=== PATIENT | male | born 1955 | race Hispanic/Latino ===

== ENCOUNTER 2018-10-03 08:45 | Day surgery (SDC) | payer OTHER ==
[2018-10-03] MEDS: NACL 0.9% 500 ML 500 ML IV SCH ×2 (10:37→12:20)
[2018-10-03 10:39] LABS: Basophils # (Auto) 0.1 K/mm3 (0.0-0.1); Basophils % (Auto) 0.9 % (0.0-1.8); Eosinophils # (Auto) 0.4 K/mm3 (0.0-0.4); Eosinophils % (Auto) 6.2 % (0.0-4.3); Hematocrit 39.9 % (35.5-45.6); Hemoglobin 13.4 gm/dl (11.8-15.2); Lymphocytes # (Auto) 1.5 K/mm3 (1.2-5.4); Lymphocytes % (Auto) 21.6 % (13.4-35.0); Mean Corpuscular HGB Conc 34 % (32-34); Mean Corpuscular Volume 88 fl (84-94); Monocytes # (Auto) 0.6 K/mm3 (0.0-0.8); Monocytes % (Auto) 9.2 % (0.0-7.3); Platelet Count 212 K/mm3 (140-440); Red Blood Count 4.56 M/mm3 (3.65-5.03); Red Cell Distribution Width 15.3 % (13.2-15.2)
[2018-10-03 10:50] LABS: INR 1.01 (0.87-1.13)
[2018-10-03 10:51] LABS: Partial Thromboplastin Time 28.8 Sec. (24.2-36.6)
[2018-10-03 11:03] LABS: Calcium 8.9 mg/dL (8.4-10.2)
[2018-10-03] MEDS ORDERED: HEPARIN/NS 5000 UNIT/500ML(CATH LAB) 500 ML IR ONE (11:18)
[2018-10-03] MEDS ORDERED: VERSED ONE (11:45)
[2018-10-03] MEDS ORDERED: SUBLIMAZE ONE (11:46)
[2018-10-03] MEDS ORDERED: DILAUDID ONE (11:46)
[2018-10-03] MEDS ORDERED: TORADOL ONE (11:46)
[2018-10-03] MEDS: XYLOCAINE 2% INFILTRATI ONE ×2 (12:22→12:23)
--- NOTE | 2018-10-03 13:04 | Short Stay Summary ---
Short Stay Documentation Date of service: 10/03/18 - History Principal diagnosis: Venous hypertension Past Surgical History: Other (superficial venous treatment) Social history: no significant social history - Allergies and Medications Current Medications: Allergies No Known Allergies Allergy (Verified 10/03/18 09:56) Home Medications Medication Instructions Recorded Confirmed Last Taken Type Acyclovir [Zovirax Cap] 100 mg PO BID 10/03/18 10/03/18 10/02/18 History 100mg Apixaban [Eliquis] 5 mg PO DAILY 10/03/18 10/03/18 10/03/18 History 5mg AtorvaSTATin [Lipitor] 40 mg PO QHS 10/03/18 10/03/18 10/02/18 History 40mg Furosemide [Lasix TAB] 20 mg PO DAILY 10/03/18 10/03/18 10/02/18 History 20mg Gabapentin [Neurontin] 600 mg PO BID 10/03/18 10/03/18 10/02/18 History 600mg Lisinopril/Hydrochlorothiazide 1 tab PO DAILY 10/03/18 10/03/18 10/02/18 History [Zestoretic 10-12.5 mg Tablet] 1 Nebivolol HCl [Bystolic] 10 mg PO DAILY 10/03/18 10/03/18 10/03/18 History 10mg Pramipexole Di-HCl [Pramipexole 0.25 mg PO DAILY 10/03/18 10/03/18 10/02/18 History Dihydrochloride] 0.25mg Topiramate [Topiramate ER] 50 mg PO DAILY 10/03/18 10/03/18 10/02/18 History 50mg clonazePAM [KlonoPIN] 0.5 mg PO BID 10/03/18 10/03/18 10/02/18 History 0.5mg tiZANidine [Zanaflex] 4 mg PO DAILY 10/03/18 10/03/18 10/02/18 History 4mg Active Medications Sodium Chloride (Nacl 0.9% 500 Ml) 500 mls @ 50 mls/hr IV DIRECT EDSON Last Admin: 10/03/18 12:20 Dose: 50 mls/hr Documented by: - Physical exam General appearance: no acute distress HEENT: Atraumatic Lungs: Normal air movement Breasts: deferred Heart: Regular rate Gastrointestinal: normal Male Genitourinary: deferred Rectal Exam: deferred Extremities: abnormal Neurological: Normal gait - Brief post op/procedure progress note Date of procedure: 10/03/18 Pre-op diagnosis: venous compression Post-op diagnosis: same Procedure: BLE venogram, IVUS, Venoplasty and stent placement Anesthesia: local Surgeon: MARIELA LEI Estimated blood loss: minimal Pathology: none Condition: stable - Disposition Condition at discharge: Good Disposition: DC-01 TO HOME OR SELFCARE Short Stay Discharge Plan Activity: advance as tolerated Weight Bearing Status: Weight Bear as Tolerated Diet: regular Wound: keep clean and dry, per your surgeon's advice Follow up with: DAVID ASKEW MD [Primary Care Provider] - 7 Days
--- NOTE | 2018-10-03 13:09 | Operative Report ---
Operative Report Operative Report: Exam: Bilateral lower extremity venogram, intravascular ultrasound, venoplasty with stent placement Clinical indication: Patient with venous hypertension with bilateral lower extremity swelling, skin discoloration Date: 10/03/2018 Procedure: Following an explanation of the risks, benefits and alternatives; josé stark informed consent was obtained. The patient was brought to the Patient erratic suite and placed in supine position on the examination table. Initial ultrasound evaluation of the legs demonstrated patent femoral veins bilaterally. The patient's proximal legs were prepped and draped in usual sterile fashion. 1% lidocaine was used for anesthesia. Under ultrasound guidance, the femoral vein on the right was cannulated with a 7 cm 18-gauge needle. A 0.035 guidewire was advanced centrally. The needle was removed and a 5 Lebanese Sheath Placed. Access to the left proximal femoral vein was obtained in a similar fashion and an additional 5 Lebanese sheath placed. Contrast was injected through the right sheath which demonstrated significant compression of the right external iliac vein. Contrast was injected through the left sheath which demonstrated significant compression of the left external iliac vein. The decision was made to evaluate further with intravascular ultrasound. Intravascular ultrasound was first performed on the right followed by the left. Clay vessels including the IVC, right common iliac vein, right external iliac vein and right common femoral vein. Left common iliac vein, left external iliac vein and left common femoral vein. The IVC is widely patent. Bilateral common iliac veins are widely patent. The left external iliac vein demonstrates 65% st enosis. The right external iliac vein demonstrate 81% stenosis. The common femoral veins bilaterally demonstrate prestenotic dilatation. An 18-90 mm wall stent was advanced through the right sheath and deployed across the lesion. The stent was seated using a 16 mm balloon. An 18 x 90 mm wall stent was advanced through the sheath and deployed across the lesion. The stent was seated using a 16 mm balloon. Post stent and venoplasty imaging bilaterally demonstrates reduction of the stenosis to less than 10% bilaterally. The guidewires were removed. The sheaths were removed and hemostasis achieved using manual compression. A sterile dressing was applied. The patient tolerated the procedure well. There were no immediate postprocedure complications. Impression: 1) Bilateral lower extremity venogram demonstrating significant compression of the external iliac veins bilaterally. 2) Intravascular ultrasound of the IVC, bilateral common iliac veins, bilateral external iliac veins in bilateral common femoral veins demonstrating 81% stenosis in the right external iliac vein and 65% stenosis in the left external iliac vein with prestenotic dilatation. 3) Treatment of these above named lesions with 18 x 90 mm wall stents with residual less than 10% stenosis
[2018-10-03] MEDS ORDERED: HYDROGEN PEROXIDE ONE (13:22)
[2018-10-03 16:23] VITALS: BP 115/63
== END 2018-10-03 14:55 | disposition home or self-care (01) ==
LOC: CATHLABREC 08:45
PROVIDERS: ATTEND Radiology Diagnostic Radiology
DX: I87.1 Compression of vein (principal); I87.303 Chronic venous hypertension (idiopathic) without complications of bilateral lower extremity; F17.210 Nicotine dependence, cigarettes, uncomplicated; E78.00 Pure hypercholesterolemia, unspecified; I10 Essential (primary) hypertension; G47.33 Obstructive sleep apnea (adult) (pediatric); K21.9 Gastro-esophageal reflux disease without esophagitis; G62.9 Polyneuropathy, unspecified; Z79.899 Other long term (current) drug therapy; Z98.890 Other specified postprocedural states
CPT/HCPCS: 36415; 37238; 37239; 37252; 37253; 75822; 76937; 80048; 85025; 85610; 85730; 99156; 99157; C1725; C1753; C1769; C1876; C1894; J1644; J1885; J2250; J3010; J7040; J1170; Q9967

== ENCOUNTER 2019-08-11 06:16 | Day surgery (SDC) | payer OTHER ==
[2019-08-11 07:09] LABS: Basophils # (Auto) 0.1 K/mm3 (0.0-0.1); Basophils % (Auto) 0.8 % (0.0-1.8); Eosinophils # (Auto) 0.3 K/mm3 (0.0-0.4); Eosinophils % (Auto) 4.8 % (0.0-4.3); Hematocrit 41.6 % (35.5-45.6); Hemoglobin 13.8 gm/dl (11.8-15.2); Lymphocytes # (Auto) 2.7 K/mm3 (1.2-5.4); Mean Corpuscular HGB Conc 33 % (32-34); Mean Corpuscular Volume 87 fl (84-94); Monocytes # (Auto) 0.8 K/mm3 (0.0-0.8); Monocytes % (Auto) 11.5 % (0.0-7.3); Platelet Count 234 K/mm3 (140-440); Red Blood Count 4.81 M/mm3 (3.65-5.03); Red Cell Distribution Width 13.9 % (13.2-15.2)
[2019-08-11 07:18] LABS: INR 1.12 (0.87-1.13)
[2019-08-11 07:19] LABS: Partial Thromboplastin Time 39.2 Sec. (24.2-36.6)
[2019-08-11 07:52] LABS: BUN/Creatinine Ratio 22; Blood Urea Nitrogen 22 mg/dL (9-20); Calcium 9.4 mg/dL (8.4-10.2); Hemolysis Index 0
[2019-08-11] MEDS ORDERED: SODIUM CHLORIDE 0.9% 500 ML 500 ML IV SCH (08:00)
[2019-08-11] MEDS ORDERED: LIDOCAINE (2%) 20 MG/1 ML VIAL 20 ML MDV INFILTRATI ONE (08:05)
[2019-08-11] MEDS ORDERED: HEPARIN 10,000 UNITS/10 ML VIAL ONE (08:05)
[2019-08-11] MEDS ORDERED: HEPARIN/NS 5000 UNIT/500ML 1,000 ML IR ONE (08:05)
[2019-08-11] MEDS ORDERED: MIDAZOLAM 2 MG/2 ML INJ ONE (08:05)
[2019-08-11] MEDS ORDERED: fentaNYL 100 MCG/2 ML INJ ONE (08:05)
[2019-08-11 10:43] VITALS: BP 107/54
--- NOTE | 2019-08-11 11:18 | Short Stay Summary ---
Short Stay Documentation Date of service: 08/11/19 Narrative H&P: See short stay record - Allergies and Medications Current Medications: Allergies No Known Allergies Allergy (Verified 10/03/18 09:56) Home Medications Medication Instructions Recorded Confirmed Last Taken Type Apixaban [Eliquis] 5 mg PO DAILY 10/03/18 08/11/19 08/10/19 History 5 mg Furosemide [Lasix TAB] 20 mg PO DAILY 10/03/18 08/11/19 08/11/19 05:00 History Gabapentin [Neurontin] 600 mg PO 5XD 10/03/18 08/11/19 08/11/19 05:00 History Lisinopril/Hydrochlorothiazide 1 tab PO DAILY 10/03/18 08/11/19 08/08/19 History [Zestoretic 10-12.5 mg Tablet] 1 tab Nebivolol HCl [Bystolic] 5 mg PO DAILY 10/03/18 08/11/19 08/11/19 History 5 mg Pramipexole Di-HCl [Pramipexole 1.5 mg PO 5XD 10/03/18 08/11/19 08/11/19 History Dihydrochloride] 1.5mg oxyCODONE /ACETAMINOPHEN [Percocet 1 tab PO Q6HR PRN #20 tablet 10/03/18 08/11/19 08/11/19 Rx 5/325] 1 tab Cyclobenzaprine [Flexeril 10 MG 10 mg PO BID 08/11/19 08/11/19 08/11/19 History TAB] 10 mg Naldemedine Tosylate [Symproic] 1 tab PO DAILY 08/11/19 08/11/19 08/11/19 History 1 tab Active Medications Sodium Chloride (Nacl 0.9% 500 Ml) 500 mls @ 50 mls/hr IV DIRECT EDSON Last Admin: 08/11/19 07:59 Dose: 50 mls/hr Documented by: - Brief post op/procedure progress note Date of procedure: 08/11/19 Pre-op diagnosis: History of PE with Need for Cessation of Anticoagulation for Operation Post-op diagnosis: same Procedure: 1. Ultrasound-Guided Access Right Common Femoral Vein 2. Diagnostic Inferior Venacavogram 3. Placement of Nikole IVC Filter 4. Radiologic Supervision with Interpretation Anesthesia: local, other (Monitored Moderate Sedation) Surgeon: JAZ WINSLOW Estimated blood loss: none Pathology: none Condition: stable - Disposition Condition at discharge: Good Disposition: DC-01 TO HOME OR SELFCARE Short Stay Discharge Plan Activity: other (No heavy lifting for 24 hours) Wound: open to air, remove dressing (24-hour)
--- NOTE | 2019-08-11 11:20 | Operative Report ---
Operative Report Operative Report: Date of procedure: 08/11/2019 Pre-operative diagnosis: History of DVT and PE with Need for Cessation of Antic oagulation for Fusion of His Cervical Spine Post-operative diagnosis: Same Procedure(s): 1. Ultrasound-Guided Access Right Femoral Vein 2. Inferior Venacavogram 3. Placement of Nikole IVC Filter 4. Radiologic Supervision With Interpretation Surgeon: Nav White MD Director Decision Support: None Anesthesia: Local, IV sedation EBL: None Counts: Correct Complications: None Condition: Stable Findings: Successful placement of IVC filter Specimen: None Indication: The patient is a 63-year-old male with a history of DVT and PE who is on Eliquis and needs to stop his Eliquis for cervical spine fusion. He is in need of an IVC filter placement to prevent pulmonary embolus in the perioperative period. He was given the risk, benefits, and alternative procedures and consented to the procedure. Description of Procedure: The patient was brought into the cath lab manager and laid in supine position, after adequate sedation the patient was prepped and draped in normal sterile fashion. Ultrasound was used to identify the right common femoral vein and the overlying skin and soft tissue was anesthetized with lidocaine. A small stab incision was made and the access needle was used with ultrasound guidance to enter the right common femoral vein. An 035 J-wire was advanced into the inferior vena cava under fluoroscopic guidance and a 5 Hebrew sheath was placed by Seldinger technique. A 5 Hebrew pigtail catheter was advanced just above the confluence of the iliac veins and inferior venacavogram was performed that demonstrated normal caliber of the inferior vena cava as well as the level of the renal veins. It also demonstrated the inferior vena cava was free of thrombus. The wire was reinserted and the pigtail catheter was removed leaving the wire in place and then the 5 Hebrew sheath was removed. The filter delivery sheath was advanced by Seldinger technique into the inferior vena cava with the tip well above the level of the renal veins. The filter was then inserted and positioned with the apex approximately a centimeter below the renal veins. The delivery sheath was withdrawn deploying the filter in place without any evidence of tilt. The sheath was then removed and pressure was held to achieve hemostasis. The patient tolerated the procedure well, all sponge needle and instrument counts correct, the patient was taken to recovery in stable condition.
== END 2019-08-11 11:18 | disposition home or self-care (01) ==
LOC: CATHLABREC 06:16
PROVIDERS: ATTEND Surgery Vascular Surgery
DX: I87.1 Compression of vein (principal); G62.9 Polyneuropathy, unspecified; E78.00 Pure hypercholesterolemia, unspecified; I10 Essential (primary) hypertension; G47.30 Sleep apnea, unspecified; K21.9 Gastro-esophageal reflux disease without esophagitis; M19.90 Unspecified osteoarthritis, unspecified site; Z98.890 Other specified postprocedural states; Z79.899 Other long term (current) drug therapy; Z87.891 Personal history of nicotine dependence; Z79.01 Long term (current) use of anticoagulants; Z86.718 Personal history of other venous thrombosis and embolism; Z86.711 Personal history of pulmonary embolism
CPT/HCPCS: 36415; 37191; 80048; 85025; 85610; 85730; 99156; 99157; C1880; J1644; J2250; J3010; J7040; Q9967

== ENCOUNTER 2019-10-02 14:40 | Inpatient (IN) | payer OTHER, MEDICARE ==
[2019-10-02] MEDS ORDERED: MORPHINE 2 MG/1 ML INJ IV PRN (14:57)
[2019-10-02] MEDS ORDERED: ONDANSETRON 4 MG/2 ML INJ IV PRN (14:57)
[2019-10-02] MEDS ORDERED: MORPHINE 4 MG/1 ML INJ IV PRN (14:57)
[2019-10-02] MEDS ORDERED: HYDROcodone/ACETAMINOPHEN 5-325 MG TAB PO PRN (14:57)
[2019-10-02] MEDS ORDERED: ALTEPLASE 20 MG in SODIUM CHLORIDE 0.9% 500 ML 500 ML EKOSDLUMEN SCH (15:00)
[2019-10-02] MEDS ORDERED: SODIUM CHLORIDE 0.9% 1000 ML 1,000 ML IV SCH (15:00)
[2019-10-02] MEDS ORDERED: HEPARIN/ 0.45% NACL DRIP 25,000 UNIT/500 ML BAG SHEATH SCH (15:00)
[2019-10-02] MEDS ORDERED: SODIUM CHLORIDE 0.9% 1000 ML 1,000 ML EKOSCLUMEN SCH (15:00)
[2019-10-02] MEDS ORDERED: SODIUM CHLORIDE 0.9% 1000 ML 1,000 ML SHEATH SCH (15:00)
--- NOTE | 2019-10-02 15:00 | Emergency Department Report ---
ED General Adult HPI - General Chief complaint: Extremity Injury, Lower Stated complaint: SENT FROM DR/[facility]OOD [facility]OT[facility] (L) LEG PUI?: No Time Seen by Provider: 10/02/19 14:55 Source: patient, RN notes reviewed, old records reviewed Mode of arrival: Wheelchair Limitations: No Limitations - History of Present Illness Initial comments: Patient is a pleasant 64-year-old gentleman with a known history of venous hypertension, DVT, IVC filter, currently on Eliquis anticoagulation therapy, recently discontinued therapy for outpatient cervical spine surgical fusion, performed about a week and a half ago, was cleared by his neurosurgeon to reinitiate Lovenox and Eliquis 5 days ago, sent to the emergency room by his vascular surgeon, Dr. Olivares, for large left lower extremity DVT. Patient endorses painless swelling in left lower extremity which started yesterday. He denies headache, neck pain, chest pain, abdominal pain, shortness of breath, hematemesis, bright red blood per rectum, and makes no complaint of extremity weakness and or numbness. Left lower extremity swelling is constant, does not radiate anywhere, does not have exacerbating or relieving factors, and does not radiate anywhere. -: days(s) Location: left, lower extremity Consistency: constant Improves with: none Worsens with: none - Related Data Home Medications Medication Instructions Recorded Confirmed Last Taken Apixaban [Eliquis] 5 mg PO DAILY 10/03/18 10/02/19 10/02/19 Gabapentin [Neurontin] 600 mg PO 5XD 10/03/18 10/02/19 10/02/19 Lisinopril/Hydrochlorothiazide 1 tab PO DAILY 10/03/18 10/02/19 10/02/19 [Zestoretic 10-12.5 mg Tablet] Nebivolol HCl [Bystolic] 5 mg PO DAILY 10/03/18 10/02/19 10/02/19 Pramipexole Di-HCl [Pramipexole 1.5 mg PO 5XD 10/03/18 10/02/19 10/02/19 Dihydrochloride] Cyclobenzaprine [Flexeril 10 MG 10 mg PO BID 08/11/19 10/02/19 10/02/19 TAB] Naldemedine Tosylate [Symproic] 1 tab PO DAILY 03/03/2210/02/19 10/02/19 Previous Rx's Medication Instructions Recorded Last Taken Type oxyCODONE /ACETAMINOPHEN [Percocet 1 tab PO Q6HR PRN #20 tablet 10/03/18 10/02/19 Rx 5/325 mg] Allergies Allergy/AdvReac Type Severity Reaction Status Date / Time No Known Allergies Allergy Verified 10/03/18 09:56 ED Review of Systems ROS: Stated complaint: SENT FROM DR/[facility]OOD [facility]OT[facility] (L) LEG Other details as noted in HPI Constitutional: denies: fever Eyes: denies: eye discharge ENT: denies: congestion Respiratory: denies: wheezing Cardiovascular: denies: chest pain, syncope Gastrointestinal: denies: vomiting, constipation, melena, hematochezia Genitourinary: denies: dysuria Musculoskeletal: joint swelling, other Skin: lesions Neurological: as per HPI Psychiatric: as per HPI Hematological/Lymphatic: denies: easy bleeding ED Past Medical Hx - Past Medical History Previous Medical History?: Yes Hx Hypertension: Yes Hx GERD: Yes Hx Arthritis: Yes - Surgical History Past Surgical History?: Yes Additional Surgical History: fusion. multiple eye surgery - Social History Smoking Status: Former Smoker Substance Use Type: None - Medications Home Medications: Home Medications Medication Instructions Recorded Confirmed Last Taken Type Apixaban [Eliquis] 5 mg PO DAILY 10/03/18 10/02/19 10/02/19 History Gabapentin [Neurontin] 600 mg PO 5XD 10/03/18 10/02/19 10/02/19 History Lisinopril/Hydrochlorothiazide 1 tab PO DAILY 10/03/18 10/02/19 10/02/19 History [Zestoretic 10-12.5 mg Tablet] Nebivolol HCl [Bystolic] 5 mg PO DAILY 10/03/18 10/02/19 10/02/19 History Pramipexole Di-HCl [Pramipexole 1.5 mg PO 5XD 10/03/18 10/02/19 10/02/19 History Dihydrochloride] oxyCODONE /ACETAMINOPHEN [Percocet 1 tab PO Q6HR PRN #20 tablet 10/03/18 10/02/19 10/02/19 Rx 5/325 mg] Cyclobenzaprine [Flexeril 10 MG 10 mg PO BID 08/11/19 10/02/19 10/02/19 History TAB] Naldemedine Tosylate [Symproic] 1 tab PO DAILY 08/11/19 10/02/19 10/02/19 History ED Physical Exam - General Limitations: No Limitations General appearance: alert, in no apparent distress - Head Head exam: Present: atraumatic, normocephalic - Eye Eye exam: Present: normal appearance, EOMI. Absent: nystagmus - ENT ENT exam: Present: normal exam, normal orophraynx, mucous membranes moist, TM's normal bilaterally - Neck Neck exam: Present: normal inspection, other (Cervical collar in place. No redness, pus or streaking noted on surgical site) - Respiratory Respiratory exam: Present: normal lung sounds bilaterally. Absent: respiratory distress - Cardiovascular Cardiovascular Exam: Present: regular rate, normal rhythm, normal heart sounds. Absent: bradycardia, tachycardia, irregular rhythm, systolic murmur, diastolic murmur, rubs, gallop - GI/Abdominal GI/Abdominal exam: Present: soft, normal bowel sounds. Absent: distended, tenderness, guarding, rebound, rigid, pulsatile mass - Rectal Rectal exam: Present: deferred - Extremities Exam Extremities exam: Present: full ROM, pedal edema, other (Swollen left lower extremity. 2+ pulses noted in the bilateral upper and lower extremities. The compartments are soft. There is no long bony tenderness. Motor and sensation are intact in the bilateral lower extremities). Absent: tenderness - Back Exam Back exam: Present: normal inspection. Absent: tenderness, CVA tenderness (R), CVA tenderness (L), paraspinal tenderness, vertebral tenderness - Neurological Exam Neurological exam: Present: alert, other (No facial droop. Tongue midline. Extraocular movements intact bilaterally. Facial sensation intact to light touch in V1, V2, V3 distribution bilaterally. 5 and a 5 strength in 4 extremities. Sensation intact to light touch in 4 extremities.). Absent: motor sensory deficit - Psychiatric Psychiatric exam: Present: flat affect - Skin Skin exam: Present: warm, dry, intact, normal color. Absent: rash ED Course Vital Signs 10/02/19 10/02/19 10/02/19 14:44 15:04 16:00 Temperature 98.1 F Pulse Rate 95 H 86 Respiratory 18 17 Rate Blood Pressure 108/67 105/63 Blood Pressure [Right] O2 Sat by Pulse 97 79 L 93 Oximetry 10/02/19 10/02/19 10/02/19 16:45 17:00 18:00 Temperature 99.1 F Pulse Rate 84 86 97 H Respiratory 16 20 Rate Blood Pressure 132/79 120/76 Blood Pressure 150/89 [Right] O2 Sat by Pulse 91 91 Oximetry 10/02/19 10/02/19 10/02/19 19:00 20:00 21:00 Temperature Pulse Rate 92 H 95 H 92 H Respiratory 18 20 17 Rate Blood Pressure 130/77 132/77 131/85 Blood Pressure [Right] O2 Sat by Pulse 91 Oximetry 10/02/19 10/02/19 10/02/19 22:00 23:00 23:23 Temperature Pulse Rate 88 88 Respiratory 18 18 20 Rate Blood Pressure 140/86 137/80 147/89 Blood Pressure [Right] O2 Sat by Pulse 92 94 92 Oximetry 10/03/19 10/03/19 10/03/19 00:00 01:00 01:05 Temperature 98.0 F Pulse Rate 91 H 88 Respiratory 18 17 Rate Blood Pressure 147/89 147/89 Blood Pressure [Right] O2 Sat by Pulse 93 93 Oximetry 10/03/19 10/03/19 10/03/19 02:00 03:00 04:00 Temperature Pulse Rate 90 91 H 90 Respiratory 14 19 20 Rate Blood Pressure 145/85 110/70 110/70 Blood Pressure [Right] O2 Sat by Pulse 96 87 94 Oximetry 10/03/19 10/03/19 10/03/19 05:00 05:49 06:00 Temperature 98.5 F Pulse Rate Respiratory Rate Blood Pressure 110/65 119/72 Blood Pressure [Right] O2 Sat by Pulse 90 89 Oximetry 10/03/19 10/03/19 10/03/19 07:00 07:37 08:00 Temperature 97.8 F Pulse Rate 81 79 Respiratory 17 17 Rate Blood Pressure 122/77 139/87 Blood Pressure 135/84 [Right] O2 Sat by Pulse 96 96 96 Oximetry ED Medical Decision Making - Lab Data Result diagrams: 10/02/19 16:44 10/02/19 16:31 Vital Signs 10/02/19 14:44 Temperature 98.1 F Pulse Rate 95 H Respiratory 18 Rate Blood Pressure 108/67 O2 Sat by Pulse 97 Oximetry Vital Signs 10/02/19 10/02/19 10/02/19 14:44 15:04 16:00 Temperature 98.1 F Pulse Rate 95 H 86 Respiratory 18 17 Rate Blood Pressure 108/67 105/63 Blood Pressure [Right] O2 Sat by Pulse 97 79 L 93 Oximetry 10/02/19 10/02/19 10/02/19 16:45 17:00 18:00 Temperature 99.1 F Pulse Rate 84 86 97 H Respiratory 16 20 Rate Blood Pressure 132/79 120/76 Blood Pressure 150/89 [Right] O2 Sat by Pulse 91 91 Oximetry 10/02/19 10/02/19 10/02/19 19:00 20:00 21:00 Temperature Pulse Rate 92 H 95 H 92 H Respiratory 18 20 17 Rate Blood Pressure 130/77 132/77 131/85 Blood Pressure [Right] O2 Sat by Pulse 91 Oximetry 10/02/19 10/02/19 10/02/19 22:00 23:00 23:23 Temperature Pulse Rate 88 88 Respiratory 18 18 20 Rate Blood Pressure 140/86 137/80 147/89 Blood Pressure [Right] O2 Sat by Pulse 92 94 92 Oximetry 10/03/19 10/03/19 10/03/19 00:00 01:00 01:05 Temperature 98.0 F Pulse Rate 91 H 88 Respiratory 18 17 Rate Blood Pressure 147/89 147/89 Blood Pressure [Right] O2 Sat by Pulse 93 93 Oximetry 10/03/19 10/03/19 10/03/19 02:00 03:00 04:00 Temperature Pulse Rate 90 91 H 90 Respiratory 14 19 20 Rate Blood Pressure 145/85 110/70 110/70 Blood Pressure [Right] O2 Sat by Pulse 96 87 94 Oximetry 10/03/19 10/03/19 10/03/19 05:00 05:49 06:00 Temperature 98.5 F Pulse Rate Respiratory Rate Blood Pressure 110/65 119/72 Blood Pressure [Right] O2 Sat by Pulse 90 89 Oximetry 10/03/19 10/03/19 10/03/19 07:00 07:37 08:00 Temperature 97.8 F Pulse Rate 81 79 Respiratory 17 17 Rate Blood Pressure 122/77 139/87 Blood Pressure 135/84 [Right] O2 Sat by Pulse 96 96 96 Oximetry - Medical Decision Making Differential diagnosis, including but not limited to: Large left lower extremity DVT Assessment and plan: 64-year-old gentleman presenting with acute onset left lower extremity DVT, now on anticoagulation, not a thrombolysis candidate secondary to recent cervical spine surgery performed about a week and a half ago, sent to the emergency room by his vascular surgeon for intervention on the aforementioned DVT. He is amenable to hospitalization, and we will initiate heparin. Dr. Olivares of vascular surgery to follow in consultation. Dr. Capone of hospital medicine to admit the patient to the medical service. Patient is amenable to this plan of care. No symptoms consistent with coronavirus. Critical Care Time: Yes Critical care time in (mins) excluding proc time.: 35 Critical care attestation.: If time is entered above; I have spent that time in minutes in the direct care of this critically ill patient, excluding procedure time. ED Disposition Clinical Impression: Acute DVT (deep venous thrombosis) Qualifiers: DVT location: lower extremity Affected thrombotic vein of extremity: unspecified vein of extremity Laterality: left Qualified Code(s): I82.402 - Acute embolism and thrombosis of unspecified deep veins of left lower extremity Disposition: OP ADMIT IP TO THIS HOSP Is pt being admited?: Yes Does the pt Need Aspirin: No Condition: Serious
[2019-10-02] MEDS ORDERED: HEPARIN 10,000 UNITS/10 ML VIAL IV ONE (15:06)
--- NOTE | 2019-10-02 15:23 | Consultation ---
History of Present Illness - Reason for Consult Consult date: 10/02/19 Left leg acute DVT - History of Present Illness Patient with a history of chronic venous hypertension and a history of DVT of his lower extremities who in early 2018 had undergone placement of venous stents. Following treatment of his deep venous disease, the patient has done well and was tolerating anticoagulation. 1 month ago, the patient underwent placement of an IVC filter in anticipation of discontinuation of anticoagulation for cervical spinal fusion. The patient was taken off his Eliquis and underwent cervical spinal fusion on 09/29/2019. Yesterday, his left leg began to hurt. The patient restarted his Eliquis yesterday. Today, the patient presented to an outside institution where he underwent a vascular ultrasound which demonstrated that the stents in his common iliac vein and external iliac vein are widely patent. The patient has thrombus in the left leg extending from the femoral vein proximally to the below the knee deep veins. The patient's profunda is open and maintaining the patency of the external iliac vein and common iliac vein. Patient's leg is swollen and warm to the touch. He does have palpable pedal pulses. Motor and sensation are intact. Past History Past Medical History: DVT Past Surgical History: Other (Cervical spinal fusion on 09/29/2019) Social history: no significant social history Family history: no significant family history Medications and Allergies Allergies Allergy/AdvReac Type Severity Reaction Status Date / Time No Known Allergies Allergy Verified 10/03/18 09:56 Home Medications Medication Instructions Recorded Confirmed Last Taken Type Apixaban [Eliquis] 5 mg PO DAILY 10/03/18 08/11/19 08/10/19 History 5 mg Furosemide [Lasix TAB] 20 mg PO DAILY 10/03/18 08/11/19 08/11/19 05:00 History Gabapentin [Neurontin] 600 mg PO 5XD 10/03/18 08/11/19 08/11/19 05:00 History Lisinopril/Hydrochlorothiazide 1 tab PO DAILY 10/03/18 08/11/19 08/08/19 History [Zestoretic 10-12.5 mg Tablet] 1 tab Nebivolol HCl [Bystolic] 5 mg PO DAILY 10/03/18 08/11/19 08/11/19 History 5 mg Pramipexole Di-HCl [Pramipexole 1.5 mg PO 5XD 10/03/18 08/11/19 08/11/19 History Dihydrochloride] 1.5mg oxyCODONE /ACETAMINOPHEN [Percocet 1 tab PO Q6HR PRN #20 tablet 10/03/18 08/11/19 08/11/19 Rx 5/325 mg] 1 tab Cyclobenzaprine [Flexeril 10 MG 10 mg PO BID 08/11/19 08/11/19 08/11/19 History TAB] 10 mg Naldemedine Tosylate [Symproic] 1 tab PO DAILY 08/11/19 08/11/19 08/11/19 History 1 tab Active Meds: Active Medications Heparin Sodium/Sodium Chloride (Heparin/ 0.45% Nacl-25,000 Unit/500 Ml) 25,000 unit in 500 mls @ 30 mls/hr IV TITR EDSON; Protocol Review of Systems All systems: negative Exam - Constitutional Vitals: Temp Pulse Resp BP Pulse Ox 98.1 F 95 H 18 108/67 97 10/02/19 14:44 10/02/19 14:44 10/02/19 14:44 10/02/19 14:44 10/02/19 14:44 General appearance: Present: no acute distress - EENT Eyes: Present: EOM intact ENT: hearing intact - Neck Neck: Present: supple, normal ROM - Respiratory Respiratory effort: normal - Extremities Extremities: pulses intact Extremity abnormal: edema, erythema - Abdominal General gastrointestinal: Present: deferred Male genitourinary: Present: deferred - Rectal Rectal Exam: deferred - Psychiatric Psychiatric: appropriate mood/affect, cooperative - Neurologic Neurologic: no focal deficits Assessment and Plan Patient will need to be started on an heparin drip and ultimately transitioned over to oral anticoagulation. He will be scheduled for thrombectomy of his left leg from popliteal approach today. Patient is not a candidate for TPA thrombolytic catheter placement secondary to his recent cervical spine fusion.
--- NOTE | 2019-10-02 15:32 | History and Physical Report ---
History of Present Illness Chief complaint: My left leg is swollen History of present illness: 64 YO Male with Obesity, PVD, HTN, GERD, OA, DJD, DVT on Therapeutic anticoagulation presents to ED for evaluation. Patient states that he has experienced swelling and pain in his left leg over the past 4 days with progress ively worsening symptoms over the same timeframe. Patient was seen and evaluated in his vascular surgeon's office and was sent for reevaluation. Patient was seen at an outside institution and underwent a vascular ultrasound which revealed left leg DVT. The patient was transported to [facility] via private vehicle. Patient seen and evaluated in the emergency department. Lab and imaging studies reviewed. Vascular surgery service consulted in ED. Patient initiated on therapeutic anticoagulation in the emergency department. Patient denies fever, chills, chest pain, palpitation, shortness of breath, skin rash, recent ill contacts, known exposure to COVID-19. Patient admitted to [facility] for further care and evaluation. No prior admission for review. All medication listed at time of admission has been reconciled. Advanced care planning conducted in the emergency department. Past History Past Medical History: DVT, other (See HPI) Past Surgical History: Other (Cervical spinal fusion on 09/29/2019) Social history: no significant social history, Family history: no significant family history Medications and Allergies Allergies Allergy/AdvReac Type Severity Reaction Status Date / Time No Known Allergies Allergy Verified 10/03/18 09:56 Home Medications Medication Instructions Recorded Confirmed Last Taken Type Apixaban [Eliquis] 5 mg PO DAILY 10/03/18 08/11/19 08/10/19 History 5 mg Furosemide [Lasix TAB] 20 mg PO DAILY 10/03/18 08/11/19 08/11/19 05:00 History Gabapentin [Neurontin] 600 mg PO 5XD 10/03/18 08/11/19 08/11/19 05:00 History Lisinopril/Hydrochlorothiazide 1 tab PO DAILY 10/03/18 08/11/19 08/08/19 History [Zestoretic 10-12.5 mg Tablet] 1 tab Nebivolol HCl [Bystolic] 5 mg PO DAILY 10/03/18 08/11/19 08/11/19 History 5 mg Pramipexole Di-HCl [Pramipexole 1.5 mg PO 5XD 10/03/18 08/11/19 08/11/19 History Dihydrochloride] 1.5mg oxyCODONE /ACETAMINOPHEN [Percocet 1 tab PO Q6HR PRN #20 tablet 10/03/18 08/11/19 08/11/19 Rx 5/325 mg] 1 tab Cyclobenzaprine [Flexeril 10 MG 10 mg PO BID 08/11/19 08/11/19 08/11/19 History TAB] 10 mg Naldemedine Tosylate [Symproic] 1 tab PO DAILY 08/11/19 08/11/19 08/11/19 History 1 tab Active Meds: Active Medications Heparin Sodium/Sodium Chloride (Heparin/ 0.45% Nacl-25,000 Unit/500 Ml) 25,000 unit in 500 mls @ 30 mls/hr IV TITR EDSON; Protocol Review of Systems Constitutional: no weight loss, no weight gain, no fever, no chills, no weakness, no malaise, no lethargy Ears, nose, mouth and throat: no ear pain, no ear discharge, no tinnitis, no nose pain, no nasal congestion Cardiovascular: no chest pain, no orthopnea Respiratory: no cough, no cough with sputum, no excessive sputum, no shortness of breath, no dyspnea on exertion Gastrointestinal: no abdominal pain, no nausea, no vomiting, no diarrhea, no change in bowel habits Genitourinary Male: no dysuria, no hematuria, no flank pain, no discharge, no urinary hesitancy Rectal: no pain, no incontinence, no bleeding Musculoskeletal: other (Left leg swelling), no neck stiffness, no shooting arm pain Integumentary: no rash, no redness, no sores, no wounds, no boils Neurological: no head injury, no paralysis, no parathesias, no numbness, no tingling, no syncope Psychiatric: no anxiety, no change in sleep habits, no insomnia, no hypersomnia, no change in libido, no suicidal ideation Endocrine: no cold intolerance, no polyphagia, no excessive thirst, no polyuria, no nocturia Hematologic/Lymphatic: no easy bruising, no easy bleeding, no lymphadenopathy Allergic/Immunologic: no allergic rhinitis, no wheezing, no anaphylaxis, no angioedema Exam - Constitutional Vitals: Temp Pulse Resp BP Pulse Ox 98.1 F 95 H 18 108/67 97 10/02/19 14:44 10/02/19 14:44 10/02/19 14:44 10/02/19 14:44 10/02/19 14:44 General appearance: Present: mild distress - EENT Eyes: Present: PERRL ENT: hearing intact, clear oral mucosa - Neck Neck: Present: supple, normal ROM - Respiratory Respiratory effort: normal Respiratory: bilateral: CTA - Cardiovascular Heart Sounds: Present: S1 & S2. Absent: rub, click - Extremities Extremities: pulses symmetrical, No edema Peripheral Pulses: within normal limits - Abdominal General gastrointestinal: Present: soft, non-tender, non-distended, normal bowel sounds Male genitourinary: Present: normal - Integumentary Integumentary: Present: clear, warm, dry - Musculoskeletal Musculoskeletal: gait normal, strength equal bilaterally - Psychiatric Psychiatric: appropriate mood/affect, intact judgment & insight - Neurologic Neurologic: CNII-XII intact, moves all extremities Results - Labs CBC & Chem 7: 10/02/19 16:44 10/02/19 16:31 Assessment and Plan - Patient Problems (1) Acute DVT (deep venous thrombosis) Current Visit: Yes Status: Acute Qualifiers: DVT location: lower extremity Affected thrombotic vein of extremity: unspecified vein of extremity Laterality: left Qualified Code(s): I82.402 - Acute embolism and thrombosis of unspecified deep veins of left lower extremity Plan to address problem: Therapeutic anticoagulation, left lower extremity duplex studies reviewed, vascular surgery service consulted, supportive care, surgical intervention as per vascular surgery team. (2) Hypertension Current Visit: Yes Status: Acute Qualifiers: Hypertension type: essential hypertension Qualified Code(s): I10 - Essential (primary) hypertension Plan to address problem: Monitor blood pressure every shift, continue medical management. (3) GERD (gastroesophageal reflux disease) Current Visit: Yes Status: Acute Qualifiers: Esophagitis presence: without esophagitis Qualified Code(s): K21.9 - Gastro-esophageal reflux disease without esophagitis Plan to address problem: PPI therapy, supportive care. (4) Osteoarthritis Current Visit: Yes Status: Acute Qualifiers: Laterality: bilateral Plan to address problem: Supportive care, pain control, (5) DJD (degenerative joint disease) Current Visit: Yes Status: Acute Qualifiers: Spinal region: cervical Plan to address problem: Patient status post spinal fusion, c-collar in place, supportive care. Outpatient orthopedic spine surgery follow-up. (6) DVT prophylaxis Current Visit: Yes Status: Acute Plan to address problem: Continue therapeutic anticoagulation, SCD to bilateral lower extremities while in bed as tolerated. (7) Advance care planning Current Visit: Yes Status: Acute Plan to address problem: Disease education conducted, patient is full code, patient knowledges understanding and agreement with care plan, +30 minutes.
[2019-10-02] MEDS ORDERED: HEPARIN/ 0.45% NACL DRIP 25,000 UNIT/500 ML BAG IV SCH (16:00)
[2019-10-02] MEDS ORDERED: MORPHINE 4 MG/1 ML INJ ONE (16:23)
[2019-10-02] MEDS ORDERED: oxyCODONE /ACETAMINOPHEN 5-325MG TAB ONE (16:36)
[2019-10-02] MEDS: oxyCODONE /ACETAMINOPHEN 5-325MG TAB PO PRN ×2 (16:40→23:01)
[2019-10-02 17:06] LABS: Basophils # (Auto) 0.1 K/mm3 (0.0-0.1); Basophils % (Auto) 0.6 % (0.0-1.8); Eosinophils # (Auto) 0.2 K/mm3 (0.0-0.4); Eosinophils % (Auto) 1.8 % (0.0-4.3); Hematocrit 35.8 % (35.5-45.6); Lymphocytes # (Auto) 2.7 K/mm3 (1.2-5.4); Lymphocytes % (Auto) 21.8 % (13.4-35.0); Mean Corpuscular HGB Conc 34 % (32-34); Mean Corpuscular Volume 86 fl (84-94); Monocytes # (Auto) 1.3 K/mm3 (0.0-0.8); Monocytes % (Auto) 10.4 % (0.0-7.3); Platelet Count 334 K/mm3 (140-440); Red Blood Count 4.14 M/mm3 (3.65-5.03); Red Cell Distribution Width 14.4 % (13.2-15.2)
[2019-10-02 17:21] LABS: INR 1.31 (0.87-1.13)
[2019-10-02 17:22] LABS: Partial Thromboplastin Time 54.1 Sec. (24.2-36.6)
[2019-10-02 17:38] LABS: Alanine Aminotransferase 17 units/L (7-56); Albumin 3.2 g/dL (3.9-5); BUN/Creatinine Ratio 30; Blood Urea Nitrogen 24 mg/dL (9-20); Calcium 8.8 mg/dL (8.4-10.2); Hemolysis Index 33
--- NOTE | 2019-10-02 19:38 | Event Note ---
Date: 10/02/19 Patient scheduled for thrombectomy of DVT. Unfortunately, the patient was fed in the ER. His thrombectomy will be rescheduled for tomorrow morning.
[2019-10-02] MEDS ORDERED: oxyCODONE /ACETAMINOPHEN 5-325MG TAB PO PRN (22:36)
[2019-10-03] MEDS ORDERED: CYCLOBENZAPRINE 10 MG TAB ONE (01:10)
[2019-10-03] MEDS ORDERED: GABAPENTIN 300 MG CAP ONE (01:10)
[2019-10-03] MEDS: PRAMIPEXOLE 0.5 MG TAB PO SCH ×4 (01:17→22:50)
[2019-10-03] MEDS: CYCLOBENZAPRINE 10 MG TAB PO SCH ×2 (01:17→22:22)
[2019-10-03] MEDS: GABAPENTIN 300 MG CAP PO SCH ×6 (01:17→22:22)
[2019-10-03] MEDS ORDERED: oxyCODONE /ACETAMINOPHEN 5-325MG TAB ONE (04:01)
[2019-10-03] MEDS ORDERED: HEPARIN/NS 5000 UNIT/500ML 1,000 ML IR ONE ×2 (08:32→10:07)
[2019-10-03] MEDS ORDERED: HEPARIN 10,000 UNITS/10 ML VIAL ONE (08:32)
[2019-10-03] MEDS ORDERED: LIDOCAINE (2%) 20 MG/1 ML VIAL 20 ML MDV INFILTRATI ONE (08:33)
[2019-10-03] MEDS ORDERED: SODIUM CHLORIDE 0.9% 500 ML 500 ML ONE (08:33)
[2019-10-03] MEDS ORDERED: ceFAZolin/Water 2 GM/20 ML 2 GM/20 ML SYRINGE IV ONE (09:38)
[2019-10-03] MEDS: MIDAZOLAM 2 MG/2 ML INJ ONE ×4 (09:41→10:23)
[2019-10-03] MEDS: fentaNYL 100 MCG/2 ML INJ ONE ×4 (09:41→10:23)
[2019-10-03] MEDS ORDERED: APIXABAN 5 MG TAB PO SCH (10:00)
[2019-10-03] MEDS ORDERED: LISINOPRIL 10 MG TAB PO SCH (10:00)
[2019-10-03] MEDS ORDERED: NEBIVOLOL HCL 5 MG PO SCH (10:00)
[2019-10-03] MEDS ORDERED: NALDEMEDINE TOSYLATE PO SCH (10:00)
[2019-10-03] MEDS ORDERED: APIXABAN 5 MG TAB ONE (10:49)
[2019-10-03] MEDS ORDERED: SODIUM CHLORIDE 0.9% 1000 ML 1,000 ML IV SCH (11:30)
--- NOTE | 2019-10-03 12:08 | Operative Report ---
Operative Report Operative Report: Date of Procedure: 10/03/2019 Pre-operative Diagnosis: Acute Left Lower Extremity DVT Post-operative Diagnosis: Same with Thrombus within the IVC and IVC Filter Procedure(s): 1. Ultrasound-Guided Access Left Popliteal Vein 2. Diagnostic Left Lower Extremity Venogram 3. Diagnostic Inferior Venacavogram 4. Percutaneous Mechanical Thrombectomy of Left Popliteal and Femoral Vein with Zelante AngioJet Catheter, Caustic Cresylate Shift Superintendent Device, And 8 Ivorian Multipurpose Catheter 5. Angioplasty of Popliteal Vein with 8 x 100 [place] Balloon 6. Percutaneous Mechanical Thrombectomy Of Inferior Vena Cava with with Zelante AngioJet Catheter And 8 Ivorian Multipurpose Catheter 7. Radiologic Supervision with Interpretation Surgeon: Nav White M.D. Hydro Plant Site Manager: None Anesthesia: 1% Lidocaine/Monitored Moderate Sedation EBL: Minimal Counts: Correct Complications: None Condition: Stable Specimen: Thrombus aspirated through the multipurpose catheter was discarded. Indication: The patient is a 64-year-old male with a history of multiple DVTs who recently underwent a cervical fusion. He had a IVC filter placed prior to his operation secondary to the need for cessation of his anticoagulation. He presented to an outside physician with complaints of left lower extremity pain and had a venous duplex that demonstrated an acute left lower extremity DVT. We evaluated him and set him up for a diagnostic left lower extremity venogram with possible percutaneous mechanical thrombectomy. He was given the risk, benefits, and alternative procedures and consented to the procedure. Venogram Findings: The diagnostic left lower extremity venogram revealed near totally occlusive thrombus within the popliteal vein and distal femoral vein. There was minimal thrombus within the mid femoral vein. The common femoral vein was free of thrombus. The profunda vein appeared to be patent without significant thrombus. There was no significant thrombus appreciated within the external iliac or common iliac vein. There was thrombus within the proximal inferior vena cava and a filter within the IVC. At the completion of the case there was minimal residual thrombus within the popliteal vein and femoral vein. Despite debulking the inferior vena cava and IVC filter there was a moderate amount of thrombus within the IVC and IVC filter however the flow through the IVC and the filter was brisk with less than 50% occlusion of the IVC filter. Description of Procedure: The patient was brought to the catheterization laboratory technician and laid in prone position. After a timeout was performed his left popliteal fossa was prepped and draped in normal sterile fashion. Ultrasound was used to identify the left popliteal vein and the overlying skin and soft tissue was anesthetized with lidocaine. An 11 blade was used to make a small stab incision and an 18-gauge access needle was used with ultrasound guidance to enter the popliteal vein just above the crease. A 0.035 Bentson wire was advanced into the vein and an 8 Ivorian 11 cm sheath was placed by Seldinger technique. A diagnostic left lower extremity venogram was performed revealing near total occlusion of the popliteal vein and distal femoral vein with thrombus. The remainder of the femoral vein was patent with minimal thrombus. I used a vertebral catheter to advance the Bentson wire into the IVC and after removing the Bentson wire performed an inferior venacavogram revealing thrombus within the IVC filter. At that time I did not initially appreciate the thrombus within the IVC. I advanced a 0.035 advantage wire into the distal superior vena cava and then used a Zelante AngioJet Catheter to perform percutaneous mechanical thrombectomy of the femoral popliteal veins as well as the thrombus within the IVC filter. I performed a follow-up venogram revealing residual thrombus within the popliteal vein that appeared to have a chronic component. I removed the Advantage Wire and advanced the Caustic Cresylate Shift Superintendent Device into his popliteal vein and use the device to morcellate the thrombus as well as grind the thrombus off of the wall of the popliteal vein. I then used a combination of the Zelante AngioJet Catheter and then 8 Ivorian multipurpose catheter to aspirate the thrombus. This resulted in minimal residual thrombus however there was stenosis within the vein of approximately 50% which are reduced to less than 10% with angioplasty with an 8 x 100 [place] Balloon. I then advanced the 8 Ivorian Multipurpose Catheter into the IVC and made multiple passes into the IVC filter aspirating thrombus. I aspirated a significant amount of chronic thrombus from the filter however every inferior venacavagram revealed additional thrombus in the filter. I pulled the catheter into the distal IVC and performed an injection and realized there was a significant thrombus burden in the IVC below the filter. I used the multipurpose catheter to aspirate additional thrombus from the IVC and filter, to lessen the thrombus burden. Additional venograms revelaed the flow was brisk with less than 50% reduction of the IVC filter lumen. At that point I removed the catheter and sheath and manual pressure was used to achieve hemostasis. Once hemostasis was achieved a sterile dressing was applied and the patient was transported to his room in stable condition.
[2019-10-03] MEDS: oxyCODONE /ACETAMINOPHEN 5-325MG TAB PO PRN (12:51)
[2019-10-03] MEDS: diazePAM 5 MG TAB PO SCH ×3 (13:37→22:21)
[2019-10-03] MEDS ORDERED: MORPHINE 2 MG/1 ML INJ IV PRN (14:07)
[2019-10-03] MEDS: METOPROLOL SUCCINATE XL 50 MG TAB PO SCH (14:19)
[2019-10-03] MEDS: hydroCHLOROthiazide 12.5 MG CAP PO SCH (14:19)
[2019-10-03] MEDS: APIXABAN 5 MG TAB PO SCH (22:22)
[2019-10-04 04:14] LABS: Hematocrit 33.1 % (35.5-45.6); Hemoglobin 11.1 gm/dl (11.8-15.2); Mean Corpuscular HGB Conc 34 % (32-34); Mean Corpuscular Volume 85 fl (84-94); Platelet Count 338 K/mm3 (140-440); Red Blood Count 3.88 M/mm3 (3.65-5.03); Red Cell Distribution Width 14.4 % (13.2-15.2)
[2019-10-04] MEDS: GABAPENTIN 300 MG CAP PO SCH ×3 (06:17→17:04)
--- NOTE | 2019-10-04 07:54 | Progress Note ---
Assessment and Plan / Acute DVT (deep venous thrombosis) cont therapeutic anticoagulation with eliquis, left lower extremity duplex studies reviewed, vascular surgery service consulted s/p thrombectomy today supportive care, surgical intervention as per vascular surgery team. /Hypertension Monitor blood pressure every shift, continue medical management. Resume home medication / GERD (gastroesophageal reflux disease) PPI therapy, supportive care. / Osteoarthritis Supportive care, pain control, / DJD (degenerative joint disease) Patient status post spinal fusion, c-collar in place, supportive care. Outpatient orthopedic spine surgery follow-up. / DVT prophylaxis Continue therapeutic anticoagulation, /Advance care planning Disease education conducted, patient is full code, patient knowledges understanding and agreement with care plan Physical exam; General appearance: Present: mild distress - EENT Eyes: Present: PERRL ENT: hearing intact, clear oral mucosa - Neck Neck: Present: supple, normal ROM - Respiratory Respiratory effort: normal Respiratory: bilateral: CTA - Cardiovascular Heart Sounds: Present: S1 & S2. Absent: rub, click - Extremities Extremities: pulses symmetrical, No edema Peripheral Pulses: within normal limits - Abdominal General gastrointestinal: Present: soft, non-tender, non-distended, normal bowel sounds Male genitourinary: Present: normal - Integumentary Integumentary: Present: clear, warm, dry - Musculoskeletal Musculoskeletal: gait normal, strength equal bilaterally - Psychiatric Psychiatric: appropriate mood/affect, intact judgment & insight - Neurologic Neurologic: CNII-XII intact, moves all extremities Subjective Date of service: 10/03/19 Interval history: Patient seen and examined. Medical records and medication list reviewed. No acute event overnight noted by the RN. Patient denies any chest pain or difficulty breathing. Patient is tolerating diet. Patient does endorse neck pain and back pain Discussed plan of care at bedside with patient. Objective - Constitutional Vitals: Vital Signs - 12hr 10/03/19 10/03/19 10/03/19 20:00 22:00 23:22 Temperature 98.8 F Pulse Rate 115 H 115 H Pulse Rate [ 113 H Left Radial] Pulse Rate [ 113 H Right Radial] Respiratory 18 20 Rate Blood Pressure 91/64 O2 Sat by Pulse 91 Oximetry 10/04/19 04:42 Temperature 98.6 F Pulse Rate 97 H Pulse Rate [ Left Radial] Pulse Rate [ Right Radial] Respiratory 20 Rate Blood Pressure 92/63 O2 Sat by Pulse 92 Oximetry - Labs CBC & Chem 7: 10/04/19 03:32 10/02/19 16:31 Labs: Abnormal lab results 10/04/19 Range/Units 03:32 WBC 14.5 H (4.5-11.0) K/mm3 Hgb 11.1 L (11.8-15.2) gm/dl Hct 33.1 L (35.5-45.6) %
[2019-10-04] MEDS: PRAMIPEXOLE 0.5 MG TAB PO SCH ×2 (09:06→15:05)
[2019-10-04] MEDS: CYCLOBENZAPRINE 10 MG TAB PO SCH (09:09)
[2019-10-04] MEDS: diazePAM 5 MG TAB PO SCH ×2 (09:10→17:04)
--- NOTE | 2019-10-04 09:58 | Progress Note ---
Subjective Date of service: 10/04/19 Interval history: patient doing well no complaints left lower leg edema 2-3+ dressing removed access site soft, no hematoma left leg perfusion intact continue anticoagulation ok to ambulate patient needs to wear compression stockings ok to d/c from my standpoint f/u 2 weeks Objective - Constitutional Vitals: Vital Signs - 12hr 10/03/19 10/03/19 10/04/19 22:00 23:22 04:42 Temperature 98.8 F 98.6 F Pulse Rate 115 H 115 H 97 H Respiratory 20 20 Rate Blood Pressure 91/64 92/63 O2 Sat by Pulse 91 92 Oximetry 10/04/19 10/04/19 08:33 08:44 Temperature 98.7 F Pulse Rate 98 H Respiratory 20 18 Rate Blood Pressure 91/67 O2 Sat by Pulse 93 Oximetry - Labs CBC & Chem 7: 10/04/19 03:32 10/02/19 16:31 Labs: Abnormal lab results 10/04/19 Range/Units 03:32 WBC 14.5 H (4.5-11.0) K/mm3 Hgb 11.1 L (11.8-15.2) gm/dl Hct 33.1 L (35.5-45.6) % Medications & Allergies - Medications Allergies/Adverse Reactions: Allergies No Known Allergies Allergy (Verified 10/03/18 09:56) Home Medications: Home Medications Medication Instructions Recorded Confirmed Last Taken Type Apixaban [Eliquis] 5 mg PO DAILY 10/03/18 10/02/19 10/02/19 History Gabapentin [Neurontin] 600 mg PO 5XD 10/03/18 10/02/19 10/02/19 History Lisinopril/Hydrochlorothiazide 1 tab PO DAILY 10/03/18 10/02/19 10/02/19 History [Zestoretic 10-12.5 mg Tablet] Nebivolol HCl [Bystolic] 5 mg PO DAILY 10/03/18 10/02/19 10/02/19 History Pramipexole Di-HCl [Pramipexole 1.5 mg PO 5XD 10/03/18 10/02/19 10/02/19 History Dihydrochloride] oxyCODONE /ACETAMINOPHEN [Percocet 1 tab PO Q6HR PRN #20 tablet 10/03/18 10/02/19 10/02/19 Rx 5/325 mg] Cyclobenzaprine [Flexeril 10 MG 10 mg PO BID 08/11/19 10/02/19 10/02/19 History TAB] Naldemedine Tosylate [Symproic] 1 tab PO DAILY 08/11/19 10/02/19 10/02/19 History Active Medications: Generic Name Dose Route Start Last Admin Trade Name Freq PRN Reason Stop Dose Admin Apixaban 10 mg 10/03/19 22:00 10/03/19 22:22 Eliquis PO 10 mg Q12HR EDSON Administration Protocol Cyclobenzaprine HCl 10 mg 10/03/19 10:00 10/04/19 09:09 Flexeril PO 10 mg BID EDSON Administration Diazepam 5 mg 10/03/19 14:00 10/04/19 09:10 Valium PO 5 mg QID EDSON Administration Gabapentin 600 mg 10/03/19 06:00 10/04/19 06:17 Gabapentin PO 600 mg 5XD EDSON Administration Hydrochlorothiazide 12.5 mg 10/03/19 10:00 10/03/19 14:19 Hctz PO 12.5 mg QDAY EDSON Administration Sodium Chloride 1,000 mls @ 75 mls/hr 10/03/19 11:30 10/03/19 14:19 Nacl 0.9% 1000 Ml IV 75 mls/hr DIRECT EDSON Administration Lisinopril 10 mg 10/03/19 10:00 Zestril PO QAM EDSON Metoprolol Succinate 50 mg 10/03/19 10:00 10/03/19 14:19 Metoprolol Xl PO 50 mg QDAY EDSON Administration Miscellaneous Medication 1 tab 10/03/19 10:00 Naldemedine Tosylate [Symproic] PO DAILY EDSON Morphine Sulfate 2 mg 10/03/19 14:07 10/03/19 15:06 Morphine IV 2 mg Q4H PRN Administration Pain , Severe (7-10) Oxycodone/Acetaminophen 1 tab 10/02/19 15:32 10/03/19 12:51 Percocet 5/325 PO 1 tab Q6H PRN Administration Pain, Moderate (4-6) Pramipexole Dihydrochloride 1.5 mg 10/03/19 08:00 10/04/19 09:06 Mirapex PO 1.5 mg TID EDSON Administration Sodium Chloride 10 ml 10/02/19 22:00 10/03/19 22:22 Sodium Chloride Flush Syringe 10 Ml IV 10 ml BID EDSON Administration Sodium Chloride 10 ml 10/02/19 15:32 Sodium Chloride Flush Syringe 10 Ml IV PRN PRN LINE FLUSH
[2019-10-04] MEDS: hydroCHLOROthiazide 12.5 MG CAP PO SCH (10:51)
[2019-10-04] MEDS: METOPROLOL SUCCINATE XL 50 MG TAB PO SCH (10:51)
[2019-10-04] MEDS: APIXABAN 5 MG TAB PO SCH (10:52)
[2019-10-04 11:04] VITALS: BP 92/63
--- NOTE | 2019-10-04 13:09 | Discharge Summary ---
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 He had a IVC filter placed prior to his operation secondary to the need for cessation of his anticoagulation. He presented to an outside physician with complaints of left lower extremity pain and had a venous duplex that demonstrated an acute left lower extremity DVT. Vascular surgery consulted for a diagnostic left lower extremity venogram with possible percutaneous mechanical thrombectomy which was done yesterday. He was placed on eliquis therapeutic dose, H&H was monitored. Patient was clinically stable and was discharged home with outpatient follow-up. Discharge diagnosis: -- Acute DVT (deep venous thrombosis) cont therapeutic anticoagulation with eliquis, left lower extremity duplex studies reviewed, vascular surgery service consulted s/p thrombectomy --Hypertension --GERD (gastroesophageal reflux disease) cont PPI therapy, --Osteoarthritis, pain control with meds as needed --DJD (degenerative joint disease) Patient status post spinal fusion, c-collar in place, supportive care. Outpatient orthopedic spine surgery follow-up. --DVT prophylaxis Continue therapeutic anticoagulation, --Advance care planning Disease education conducted, patient is full code, patient knowledges understanding and agreement with care plan Physical exam; General appearance: Present: mild distress - EENT Eyes: Present: PERRL ENT: hearing intact, clear oral mucosa - Neck Neck: Present: supple, normal ROM - Respiratory Respiratory effort: normal Respiratory: bilateral: CTA - Cardiovascular Heart Sounds: Present: S1 & S2. Absent: rub, click - Extremities Extremities: pulses symmetrical, No edema Peripheral Pulses: within normal limits - Abdominal General gastrointestinal: Present: soft, non-tender, non-distended, normal bowel sounds Male genitourinary: Present: normal - Integumentary Integumentary: Present: clear, warm, dry - Musculoskeletal Musculoskeletal: gait normal, strength equal bilaterally - Psychiatric Psychiatric: appropriate mood/affect, intact judgment & insight - Neurologic Neurologic: CNII-XII intact, moves all extremities Disposition: [id number]/TX-[id number] HOME UNDER [facility] Time spent for discharge: 34 minutes Core Measure Documentation - Palliative Care Palliative Care/ Comfort Measures: Not Applicable - Core Measures Any of the following diagnoses?: DVT/PE - VTE Discharge Requirements Deep Vein Thrombosis/Pulmonary Embolism Present on Admission: Yes Has pt received <5 days of overlap therapy or INR<2.0: No (s/p thrombectomy) Contraindication No Overlap Therapy order at DC: Not Indicated Exam - Constitutional Vitals: Temp Pulse Resp BP Pulse Ox 98.1 F 105 H 20 92/63 96 10/04/19 11:02 10/04/19 11:02 10/04/19 11:02 10/04/19 11:02 10/04/19 11:02 Plan Activity: advance as tolerated Weight Bearing Status: Non-Weight Bearing Diet: low fat, low salt Follow up with: MARIELA LEI MD [Staff Physician] - 14 Days PRIMARY CARE, [Primary Care Provider] - 7 Days Prescriptions: Apixaban [Eliquis] 10 mg PO Q12HR #60 tablet
== END 2019-10-04 17:07 | disposition home or self-care (01) | DRG 271 ==
LOC: ED 14:40 → IMCU 15:32 → CC1 10-03 09:34 → 4A 10-03 09:59
PROVIDERS: ADMIT Internal Medicine; ATTEND Internal Medicine
PROC: B51C1ZZ Fluoroscopy of Left Lower Extremity Veins using Low Osmolar Contrast (ICD-10-PCS; principal; 2019-10-03)
PROC: 06C03ZZ Extirpation of Matter from Inferior Vena Cava, Percutaneous Approach (ICD-10-PCS; 2019-10-03)
PROC: 06CN3ZZ Extirpation of Matter from Left Femoral Vein, Percutaneous Approach (ICD-10-PCS; 2019-10-03)
PROC: 06CY3ZZ Extirpation of Matter from Lower Vein, Percutaneous Approach (ICD-10-PCS; 2019-10-03)
PROC: 067Y3ZZ Dilation of Lower Vein, Percutaneous Approach (ICD-10-PCS; 2019-10-03)
DX: T82.868A Thrombosis due to vascular prosthetic devices, implants and grafts, initial encounter (principal); I82.432 Acute embolism and thrombosis of left popliteal vein; I82.412 Acute embolism and thrombosis of left femoral vein; K21.9 Gastro-esophageal reflux disease without esophagitis; Y83.8 Other surgical procedures as the cause of abnormal reaction of the patient, or of later complication, without mention of misadventure at the time of the procedure; E66.9 Obesity, unspecified; I11.0 Hypertensive heart disease with heart failure; Z79.01 Long term (current) use of anticoagulants; Z79.899 Other long term (current) drug therapy; Z87.891 Personal history of nicotine dependence; Z98.1 Arthrodesis status; Z68.33 Body mass index [BMI] 33.0-33.9, adult; Y92.098 Other place in other non-institutional residence as the place of occurrence of the external cause
CPT/HCPCS: 36415; 37187; 37248; 75820; 76937; 80053; 82550; 83735; 85025; 85027; 85520; 85610; 85730; G0378; C1725; C1757; C1769; C1887; C1894; J0690; J1644; J2250; J2270; J3010; J7030; J7040; Q9967